=== PATIENT | male | born 1950 | race African-American/Black ===

== ENCOUNTER 2016-10-16 08:09 | Emergency (ER) | payer MEDICARE ==
[~2016-10-16] VITALS: Ht 188 cm; Wt 101.2 kg
--- NOTE | ~2016-10-16 | CR72 ---
[facility] A Service of [facility] & [facility] RADIOLOGY TEXT RESULTS PATIENT: ELIOT VERMA LOCATION: [facility] : 50 UNIT #: [id number] AGE: [address]: Lidia Granados MD SEX: M ORDER DR: [id number] [facility] [address] [facility] [address] [place], [place] [address] [id number] MR#: [id number] Acc #: [id number] NAME: ELIOT VERMA : 1950 SEX: M STUDY DATE/TIME: 10/16/2016 9:20 UNIT: [facility] ROOM: STUDY DESCRIPTION: CR Chest Single View Portable Attending Physician: Lidia Granados M.D. Ordering Physician: Lidia Granados M.D. Primary Care Physician: Primary Care Physician No MEDICAL IMAGING REPORT This report is preliminary unless electronic signature is present EXAM Portable chest HISTORY Chest pain onset this morning. TECHNIQUE Single AP view of the chest was obtained and compared with 04/10/2016 FINDINGS Cardiomegaly and a tortuous aorta are again seen. Both lungs are clear with normal vascular markings. No pleural fluid is seen. No change is noted from the previous exam. IMPRESSION Cardiomegaly. No active disease. Dictated by... Edwin Mariano M.D. THIS IS AN ELECTRONICALLY VERIFIED REPORT Edwin Mariano M.D. at 10/16/2016 4:54 PM RLF/christoph TD: 10/16/2016 10:54 JOB #: [id number] MEDICAL IMAGING REPORT Page 1 of 1 COPY
--- NOTE | ~2016-10-16 | EKG ---
PATIENT: ELIOT VERMA UNIT #: [id number] Ventricular Rate: 51 BPM Atrial Rate: 51 BPM P-R Interval: 188 ms QRS Duration: 84 ms Q-T Interval: 444 ms QTC Calculation(Bezet): 409 ms P [place]: 51 degrees Calculated R [place]: 51 degrees Calculated T [place]: 32 degrees Diagnosis Line: Sinus bradycardia Diagnosis Line: ST elevation, consider early repolarization Diagnosis Line: Borderline ECG Diagnosis Line: When compared with ECG of 25-DEC-2012 19:23, Diagnosis Line: No significant change was found Diagnosis Line: Confirmed by MARYBETH MARCH MD ([id number]) on 10/17/2016 Diagnosis Line: 4:58:17 PM INTERPRETING MD: ANCA WALDEN
[~2016-10-16 08:09] MED LIST: ALBUTEROL17 GM IH; BENZONATATE PO; LORATADINE PO; MEDROL DOSEPAK4 MG PO; MOTRIN20 MG/ML PO; NO MEDICATIONS; NORVASC PO; PRILOSEC PO; ZITHROMAX PO
[2016-10-16 09:26] LABS: POC - CKMB 1.1 ng/mL (0.0-7.9); POC - TROPONIN <0.05 ng/mL (<=0.05)
[2016-10-16 09:27] LABS: BASOPHIL% 0.8 % (0-2.5); EOSINOPHIL# 0.2 X10e3 (0-0.7); EOSINOPHIL% 2.7 % (0.0-7.0); HEMATOCRIT 45.6 % (38.0-50.0); HEMOGLOBIN 15.3 gm/dL (13.0-16.0); LYMPHOCYTE# 2.1 X10e3 (1.0-3.5); LYMPHOCYTE% 36.9 % (17.0-45.0); MEAN CELL VOLUME 89.1 FL (83-96); MEAN CORPUSCULAR HEMOGLOBIN 29.9 PG (28-34); MEAN CORPUSCULAR HGB CONC 33.6 g/dL (30-36); MONOCYTE# 0.6 X10e3 (0-1.0); MONOCYTE% 11.1 % (3.0-12.0); NEUTROPHIL# 2.8 X10e3 (1.5-7.1); NEUTROPHIL% 48.5 % (40-75); PLATELET COUNT 156 X10e3 (140-420); RED BLOOD COUNT 5.11 X10e (3.90-5.60); RED CELL DISTRIBUTION WIDTH 14.1 % (11.0-15.5); WHITE BLOOD COUNT 5.8 X10e3 (4.0-10.5)
[2016-10-16 09:30] LABS: DIFF IND NO
[2016-10-16 09:43] LABS: PARTIAL THROMBOPLASTIN TIME 23.6 SECONDS (23.5-31.3); PROTHROMBIN TIME (PATIENT) 10.5 SECONDS (10.0-11.7)
[2016-10-16 09:51] LABS: ALBUMIN SERUM 3.6 g/dL (3.5-5.0); BILIRUBIN, DIRECT 0.1 mg/dL (0.0-0.2); BILIRUBIN,INDIRECT 0.3 mg/dL (0.0-0.9); BILIRUBIN,TOTAL 0.4 mg/dL (0.2-2.0); BUN/CREATININE RATIO 15.71; CALCIUM SERUM 8.7 mg/dL (8.4-10.2); CREATININE SERUM 1.4 mg/dL (0.6-1.4); GLOM FILT RATE Estimated 60.3 mL/min (>60); POTASSIUM 3.8 mmol/L (3.5-5.1); PROTEIN TOTAL SERUM 6.6 g/dL (6.0-8.3)
[2016-10-16 10:23] LABS: POC - CKMB 1.2 ng/mL (0.0-7.9); POC - TROPONIN <0.05 ng/mL (<=0.05)
[2016-10-16] MEDS ORDERED: PATIENT'S PHARMACY (12:19)
[2016-10-16] MEDS ORDERED: LIPITOR40 MG PO (12:20)
[2016-10-16] MEDS ORDERED: ASPIRIN EC81 M1 PO (12:20)
== END 2016-10-16 14:16 | disposition short-term general hospital (02) ==
LOC: CED 08:09
PROVIDERS: Emergency Medicine
DX: R55 Syncope and collapse (principal); R07.89 Other chest pain; R00.1 Bradycardia, unspecified; F17.210 Nicotine dependence, cigarettes, uncomplicated; Z79.82 Long term (current) use of aspirin
CPT/HCPCS: 36415; 71010; 80048; 80076; 82553; 83690; 83880; 84484; 85025; 85610; 85730; 93005; 96360; 99285